=== PATIENT | female | born 1930 | race Caucasian/White ===

== ENCOUNTER 2021-03-05 15:38 | Inpatient (IN) | payer MEDICARE, SELFPAY ==
[~2021-03-05] VITALS: Ht 160 cm; Wt 49.2 kg
[2021-03-05 15:43] VITALS: BP_SYST 140
--- NOTE | 2021-03-05 15:57 | NUR ---
DR GOLDEN AT BEDSIDE FOR EXAM
--- NOTE | 2021-03-05 16:00 | NUR ---
PT SARAH FROM [facility] FOR SHORTNESS OF BREATH. PT AWAKE, ALERT, ORIENTED X4, REPORTS GENERALIZED WEAKNESS. DENIES ANY CHEST PAIN. PALE SKIN, WARM/DRY/INTACT. ON VIA NC AT 96%. Addendum: 03/05/21 at 1612 by SDTRAVPD ERROR-NOT ON VIA NC, SHE IS ON NRB @96%
--- NOTE | 2021-03-05 16:20 | NUR ---
EKG BEING DONE AT THIS TIME. Addendum: 03/05/21 at 1741 by SDTRAVPD UNABLE TO READ AN EKG, ASHA BENEDICT AND DR GOLDEN.
[2021-03-05 16:33] LABS: BASOPHILS % (AUTO) 0.4 % (0.0-2.0); EOSINOPHILS % (AUTO) 0.4 % (0.0-4.0); HEMATOCRIT 33.6 % (36-48); HEMOGLOBIN 11.3 g/dL (12.0-16.0); LYMPHOCYTES # (AUTO) 0.7 K/uL (1.0-5.5); LYMPHOCYTES % (AUTO) 8.1 % (20.5-51.5); MEAN CORPUSCULAR HEMOGLOBIN 30 pg (27-31); MEAN CORPUSCULAR HGB CONC 34 % (32-36); MEAN CORPUSCULAR VOLUME 90 fL (79.0-98.0); MONOCYTES # (AUTO) 0.8 K/uL (0.0-1.0); MONOCYTES % (AUTO) 8.8 % (1.7-9.3); NEUTROPHILS # (AUTO) 7.6 K/uL (1.8-7.7); NEUTROPHILS % (AUTO) 82.3 % (40.0-70.0); PLATELET COUNT (AUTO) 391 K/uL (130-430); RED BLOOD CELL COUNT(AUTO) 3.74 MIL/uL (4.2-6.2); RED CELL DISTRIBUTION WIDTH 17.1 % (9.0-15.0); WHITE BLOOD COUNT (AUTO) 9.2 K/uL (4.8-10.8)
[2021-03-05 16:35] LABS: ANION GAP 3 (5-15); CALCIUM 9.2 mg/dL (8.4-11.0); CHLORIDE 97 mmol/L (98-107); CREATININE 0.73 mg/dL (0.55-1.30); GLUCOSE 126 mg/dL (70-99); POTASSIUM 3.6 mmol/L (3.5-5.1); SODIUM SERUM 133 mmol/L (136-145); UREA NITROGEN, BLOOD 13 mg/dL (8-21)
[2021-03-05 16:41] LABS: ALANINE AMINOTRANSFERASE 20 U/L (12-78); ALBUMIN 2.9 g/dL (3.4-4.8); ASPARTATE AMINOTRANSFERASE 23 U/L (10-37); TOTAL BILIRUBIN 0.2 mg/dL (0.0-1.0)
--- NOTE | 2021-03-05 17:22 | NUR ---
Made several attempts for EKG w. 3 different machines. Machine is unable to read pt's rhythm.
[2021-03-05] MEDS ORDERED: cefTRIAXone 1 GM VIAL IM ONE (17:30)
[2021-03-05] MEDS ORDERED: AZITHROMYCIN 250 MG TABLET PO ONE (17:30)
--- NOTE | 2021-03-05 17:41 | NUR ---
MEDICATED ORDERED, WILL MONITOR FOR ANY ADVERSE SIDE EFFECTS.
--- NOTE | 2021-03-05 18:19 | NUR ---
Cleared 500 ml from rosa elena @18:20. Clear yellow & non-sedentary.
[2021-03-05] MEDS ORDERED: FUROSEMIDE 20 MG/2 ML VIAL IVP ONE (18:45)
--- NOTE | 2021-03-05 19:12 | NUR ---
Assumed total care of patient. Patient is AAO x4, GCS 15, c/o shortness of breath starting earlier today. 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 Patient denies chest pain, nausea, vomiting, fever, chills, or pain. Patient IV site patent with no signs of infiltration or infection. Indwelling cuba catheter draining clear yellow urine, bag below bladder. Will continue to monitor.
--- NOTE | 2021-03-05 19:59 | NUR ---
Update given to patients Leif david with permission from patient.
[2021-03-05 20:03] LABS: BILIRUBIN,URINE NEGATIVE (NEGATIVE); GLUCOSE,URINE NEGATIVE (NEGATIVE); KETONES,URINE NEGATIVE (NEGATIVE); LEUKOCYTE ESTERASE ,URINE 1+ (NEGATIVE); NITRITE, URINE POSITIVE (NEGATIVE); PH,URINE 5.5 (5.0-8.0); PROTEIN URINE NEGATIVE (NEGATIVE); UROBILINOGEN,URINE 0.2 (0.2-1.0)
[2021-03-05 20:06] LABS: BLOOD, URINE TRACE (NEGATIVE); CLARITY/URINE HAZY (CLEAR); COLOR,URINE STRAW (YELLOW)
[2021-03-05 20:31] LABS: BACTERIA,URINE MODERATE /HPF (None Seen); MUCUS,URINE 2+ /LPF (None Seen); RBC,URINE 0-3 /HPF (0-3); WBC,URINE 20-50 /HPF (0-3)
--- NOTE | 2021-03-05 21:28 | NUR ---
Patient resting quietly. No acute distress noted. Vital signs within normal range.
[2021-03-05] MEDS ORDERED: CEFEPIME 2 GM in D5W 100 ML IV ONE (22:00)
--- NOTE | 2021-03-05 22:28 | NUR ---
Lab at bedside drawing blood cultures
--- NOTE | 2021-03-05 23:52 | NUR ---
Patient will be admitted to care of Dr. Nina. Admitted to Telemetry unit. Will go to room pending. Complete and up to date summary report printed. SBAR report to be given at bedside with opportunity for questions.
[2021-03-05] MEDS ORDERED: CEFEPIME 2 GM/VIAL (MAXIPIME) ONE (23:59)
--- NOTE | 2021-03-06 00:19 | NUR ---
Blood cultures drawn, prior to administration of antibiotic.
--- NOTE | 2021-03-06 00:28 | NUR ---
Called patients son, Leif, and left voicemail to update him on plan of care.
[2021-03-06] MEDS ORDERED: ALBU2.5V7 INH (00:47)
[2021-03-06] MEDS ORDERED: LACT1POW8 PO (00:47)
[2021-03-06] MEDS ORDERED: WARF-66 PO (00:47)
[2021-03-06] MEDS ORDERED: METO-442 PO (00:47)
[2021-03-06] MEDS ORDERED: FURO40TA5 PO (00:47)
[2021-03-06] MEDS ORDERED: ACET325T PO (00:47)
--- NOTE | 2021-03-06 00:48 | NUR ---
Medication reconciliation completed with information provided by facility paperwork. Any prior medication reconciliation on file was reviewed and corrected.
--- NOTE | 2021-03-06 00:49 | NUR ---
Patient's code status is DNR paperwork completed and placed in chart.
--- NOTE | 2021-03-06 01:19 | NUR ---
Antiobiotics infusing via IVPB completed. IV site patent, no signs of infiltration or infection noted.
--- NOTE | 2021-03-06 02:12 | NUR ---
Patient is going to room 124A
--- NOTE | 2021-03-06 02:37 | NUR ---
Transfer to TELE via ACLS protocol. Licensed nurse present. IV present no signs or symptoms of infiltration.
--- NOTE | 2021-03-06 03:00 | NUR ---
CONSULTATION PAGED/CALLED Reason for Consultation: ASPIRATION PNA Person Who was Notified:ALEXANDER Consulting Physician: MALIK Psychology Fellow Specialty: Ordering Physician: MITCHELL
[2021-03-06 03:08] VITALS: BP_SYST 140
--- NOTE | 2021-03-06 03:40 | NUR ---
ADMISSION NOTE Received patient from ER via gurney. Patient admitted with diagnosis of aspiration pneumonia. Patient is awake, alert, oriented X 4. Patient oriented to hospital room, call light, toileting, pain management and safety-teach back done. Patient informed their room number is 124B. Personal belongings checked and Belongings List documented. Call light within reach.
--- NOTE | 2021-03-06 07:02 | NUR ---
Closing note Pt is resting in bed, no s/s of respiratory distress. Breathing even and unlabored. IV site is intact and patent. Varghese catheter is draining by gravity. Fall and safety precautions in place with bed in lowest position, bed alarm on, and call light within reach
--- NOTE | 2021-03-06 08:09 | NUR ---
CONSULTATION PAGED REASON FOR CONSULTATION:PNEUMONIA, UTI WAS CONSULT CALLED?Y PERSON WHO WAS NOTIFIED:EVELYNE CONSULTING PHYSICIAN:LASHANDA TEMPLE PATIENT CARE TECHNICIAN SPECIALTY:INFECTIOUS DISEASE PATIENT CARE TECHNICIAN PHONE NUMBER:[phone] REQUESTING PHYSICIAN:DR.[facility]
[2021-03-06] MEDS ORDERED: LORazepam 2 MG/ML VIAL IVP PRN (08:15)
[2021-03-06] MEDS ORDERED: MUPIROCIN 2% TOPICAL OINTMENT 22 GM NS PRN (08:15)
[2021-03-06] MEDS ORDERED: DOCUSATE SODIUM 100 MG CAPSULE PO PRN (08:15)
[2021-03-06] MEDS ORDERED: ALBUTEROL SULFATE 0.083% 2.5 MG/3 ML VIAL.NEB INH PRN (08:15)
[2021-03-06] MEDS ORDERED: MAGNESIUM SULFATE 50 ML IV PRN (08:15)
[2021-03-06] MEDS ORDERED: ACETAMINOPHEN 325 MG TABLET PO PRN (08:15)
[2021-03-06] MEDS ORDERED: POTASSIUM CHLORIDE 20 MEQ TAB.PRT.SR PO PRN (08:15)
[2021-03-06] MEDS ORDERED: ZOLPIDEM TARTRATE 5 MG TABLET PO PRN (08:15)
[2021-03-06] MEDS ORDERED: ONDANSETRON HCL 4 MG/2 ML VIAL IVP PRN (08:15)
[2021-03-06 08:36] LABS: BASOPHILS % (AUTO) 0.6 % (0.0-2.0); EOSINOPHILS % (AUTO) 0.6 % (0.0-4.0); HEMATOCRIT 30.7 % (36-48); HEMOGLOBIN 10.2 g/dL (12.0-16.0); LYMPHOCYTES % (AUTO) 11.4 % (20.5-51.5); MEAN CORPUSCULAR HEMOGLOBIN 30 pg (27-31); MEAN CORPUSCULAR HGB CONC 33 % (32-36); MEAN CORPUSCULAR VOLUME 90 fL (79.0-98.0); MONOCYTES # (AUTO) 0.9 K/uL (0.0-1.0); NEUTROPHILS # (AUTO) 6.8 K/uL (1.8-7.7); NEUTROPHILS % (AUTO) 77.4 % (40.0-70.0); PLATELET COUNT (AUTO) 351 K/uL (130-430); RED BLOOD CELL COUNT(AUTO) 3.42 MIL/uL (4.2-6.2); RED CELL DISTRIBUTION WIDTH 16.5 % (9.0-15.0); WHITE BLOOD COUNT (AUTO) 8.8 K/uL (4.8-10.8)
[2021-03-06] MEDS ORDERED: PIPERACILLIN/TAZO 3.375 GM in NS 50 ML IV ONE (09:00)
[2021-03-06] MEDS ORDERED: FUROSEMIDE 20 MG/2 ML VIAL IVP ONE (09:00)
[2021-03-06] MEDS ORDERED: METOPROLOL TARTRATE 50 MG TABLET PO ONE (09:00)
[2021-03-06 09:05] LABS: INR 1.6 (0.8-1.2); PROTHROMBIN TIME 16.4 SECS (9.5-12.5)
[2021-03-06] MEDS ORDERED: CYCL10TA24 PO (10:17)
[2021-03-06] MEDS ORDERED: THYR15TA9 PO (10:17)
[2021-03-06] MEDS ORDERED: DILT240C54 PO (10:17)
[2021-03-06] MEDS ORDERED: POLY17PO4 PO (10:17)
[2021-03-06] MEDS: cefTRIAXone 1 GM in D5W 50 ML IV SCH (10:22)
--- NOTE | 2021-03-06 10:25 | NUR ---
Nutrition Update : Reynold Scale: 17 noted Pt admitted for Aspiration Pneumonia. Diet: Cardiac BMI: 20.4 kg/m2 RD to follow per nutrition care standards.
[2021-03-06 12:00] VITALS: BP_SYST 130
--- NOTE | 2021-03-06 15:00 | NUR ---
removed the leads, and refuse to put it back.
[2021-03-06 16:22] VITALS: BP_SYST 140
--- NOTE | 2021-03-06 17:07 | NUR ---
received report from endorsing film processing shift supervisor RN for continuity of care, patient lying on bed, no signs of acute distress noted at this time, Varghese catheter in place, yellow urine in color, bed locked at lowest position, fall and safety precaution in place. will continue to monitor. Addendum: 03/06/21 at 1709 by Rama Galindo RN 07
--- NOTE | 2021-03-06 17:09 | NUR ---
drain Varghese catheter 1,100 cc, yellow urine in color.
[2021-03-06] MEDS: WARFARIN SODIUM 2 MG TABLET PO SCH ×2 (18:00→18:09)
--- NOTE | 2021-03-06 18:09 | NUR ---
patient refused to take Coumadin 2 mg
[2021-03-06 19:00] VITALS: BP_SYST 135
--- NOTE | 2021-03-06 19:15 | NUR ---
change of shift.pt.presents isolation status;droplet;covid19:pui status.pt.presents withdrawn affect status.pt.presents iv access location:rt.antecubital;ns flush infusing.pt.presents cuba cath intact.pt.presents the administration o2 therapy via nasal cannulae call light/telephone w/in access of the pt.
--- NOTE | 2021-03-06 19:19 | NUR ---
endorsed patient to stripper preliminary MAYRA Brito for continuity of care.
[2021-03-06 20:00] VITALS: BP_SYST 135
--- NOTE | 2021-03-06 20:00 | NUR ---
pt.assessed.v/s assessed values wnl.iv access intact iv fluids infusing.per flacc pain mgc pt.absent facial grimaces/body posturing.pt.assessed for cleanliness.pt.repositioned.o2-sat%=96%.call light/telephone placed w/in access of the pt.
--- NOTE | 2021-03-06 21:00 | NUR ---
2100pmedications administered.medications required crushed mixture apple sauze.pt.presents swallow capacity;function compromised.call light/telephone placed w/in access of the pt.
[2021-03-06] MEDS: DOXYCYCLINE HYCLATE 100 MG CAPSULE PO SCH (21:25)
[2021-03-06] MEDS: METOPROLOL TARTRATE 50 MG TABLET PO SCH (21:26)
[2021-03-06] MEDS: FUROSEMIDE 20 MG/2 ML VIAL IVP SCH (21:27)
--- NOTE | 2021-03-06 22:00 | NUR ---
pt.assessed.pt.presents quiescent affect;calm,somnolent.iv access intact iv fluids infusing.cuba cath intact urine content present.pt.assessed for cleanliness.pt.repositioned.per flacc pain mgx pt.absent facial grimaces/body posturing.call light/ telephone placed w/in access of the pt. Addendum: 03/07/21 at 0006 by Daryl Puente RN 02-sat%=96%.
[2021-03-07] VITALS (8 sets, daily range): BP systolic 123–155
--- NOTE | 2021-03-07 | NUR ---
pt.assessed.v/s assessed wnl.no c/o pain,nausea.iv access intact iv fluids infusing.cuba cath intact urine content present. 02-sat%=96%. pt.assessed for cleanliness.pt.repositioned.no requests posited@this hour.call light/telephone placed w/in access of the pt.
--- NOTE | 2021-03-07 02:00 | NUR ---
pt.assessed.pt.presents quiescent affect;calm,somnolent.per flacc pain mgx pt.absent facial grimaces/body posturing. pt.assessed for cleanliness.pt.repositioned.cuba cath intact urine content present.iv access intact iv fluids infusing.o2- sat%=96%.call light/telephone placed w/in access of the pt.
--- NOTE | 2021-03-07 04:00 | NUR ---
pt.assessed.pt.presents quiescent affect;calm,somnolent.per flacc pain mgx pt.absent facial grimaces/body posturing. cuba cath intact urine content present.o2-sat%=96%.pt.assessed for cleanliness.pt.repositioned.call light/telephone placed w/in access of the pt.
--- NOTE | 2021-03-07 06:36 | NUR ---
pt.assessed.pt.presents no c/o pain,nausea.pt.assessed for cleanliness.pt.repositioned.i have re-established iv access location lt.hand;#24g.call light/telephon placed w/in access of the pt.02-sat%=96%. Addendum: 03/07/21 at 0644 by Daryl Puente RN pt.weighed 2/t lasix administration.
[2021-03-07 07:02] LABS: BASOPHILS # (AUTO) 0.1 K/uL (0.0-0.2); BASOPHILS % (AUTO) 0.8 % (0.0-2.0); EOSINOPHILS % (AUTO) 0.2 % (0.0-4.0); HEMATOCRIT 33.6 % (36-48); LYMPHOCYTES # (AUTO) 0.9 K/uL (1.0-5.5); LYMPHOCYTES % (AUTO) 9.6 % (20.5-51.5); MEAN CORPUSCULAR HEMOGLOBIN 29 pg (27-31); MEAN CORPUSCULAR HGB CONC 33 % (32-36); MEAN CORPUSCULAR VOLUME 90 fL (79.0-98.0); MONOCYTES # (AUTO) 1.1 K/uL (0.0-1.0); MONOCYTES % (AUTO) 11.8 % (1.7-9.3); NEUTROPHILS # (AUTO) 6.9 K/uL (1.8-7.7); NEUTROPHILS % (AUTO) 77.6 % (40.0-70.0); PLATELET COUNT (AUTO) 389 K/uL (130-430); RED BLOOD CELL COUNT(AUTO) 3.74 MIL/uL (4.2-6.2); RED CELL DISTRIBUTION WIDTH 16.5 % (9.0-15.0); WHITE BLOOD COUNT (AUTO) 8.9 K/uL (4.8-10.8)
[2021-03-07 07:12] LABS: INR 1.4 (0.8-1.2); PROTHROMBIN TIME 14.4 SECS (9.5-12.5)
[2021-03-07 07:25] LABS: CALCIUM 8.6 mg/dL (8.4-11.0); CHLORIDE 97 mmol/L (98-107); CREATININE 0.46 mg/dL (0.55-1.30); GLUCOSE 110 mg/dL (70-99); SODIUM SERUM 138 mmol/L (136-145); UREA NITROGEN, BLOOD 10 mg/dL (8-21)
--- NOTE | 2021-03-07 07:35 | NUR ---
OPENING NOTES: RECEIVED REPORT FROM [facility] [place] SHIFT NURSE. PATIENT IS AWAKE SITTING IN BED. TOLERATED OXYGEN ON 4L VIA NASAL CANNULA WITH NO DISTRESS NOTED. IV LINE PATENT AND INTACT WITH NO INFILTRATION NOTED. PATIENT STABLE AT THIS TIME. SAFETY, FALL, ISOLATION, AND ASPIRATION PRECAUTIONS ARE IN PLACE. BED LOCKED IN LOWEST POSITION AND CALL LIGHT IN REACH. WILL CONTINUE TO MONITOR PATIENT FOR ANY CHANGES.
[2021-03-07 07:42] LABS: ANION GAP 10 (5-15)
[2021-03-07 08:19] LABS: POTASSIUM 2.7 mmol/L (3.5-5.1)
--- NOTE | 2021-03-07 08:40 | NUR ---
ATTENDING MD DR MEDRANO WAS CALLED, RE: CRITICAL K LEVEL.
[2021-03-07] MEDS: cefTRIAXone 1 GM in D5W 50 ML IV SCH (09:11)
[2021-03-07] MEDS: DOXYCYCLINE HYCLATE 100 MG CAPSULE PO SCH ×2 (09:11→20:50)
[2021-03-07] MEDS: METOPROLOL TARTRATE 50 MG TABLET PO SCH ×2 (09:12→20:50)
[2021-03-07] MEDS: FUROSEMIDE 20 MG/2 ML VIAL IVP SCH ×2 (09:25→20:49)
[2021-03-07] MEDS ORDERED: POTASSIUM CHLORIDE 20 MEQ/PKT PACKET PO ONE (10:45)
--- NOTE | 2021-03-07 18:20 | NUR ---
CLOSING NOTES: PATIENT IS AWAKE SITTING IN BED. TOLERATED OXYGEN ON 4L VIA NASAL CANNULA WITH NO DISTRESS NOTED. IV LINE PATENT AND INTACT WITH NO INFILTRATION NOTED. PATIENT STABLE AT THIS TIME. SAFETY, FALL, ISOLATION, AND ASPIRATION PRECAUTIONS REMAINED IN PLACE. BED LOCKED IN LOWEST POSITION AND CALL LIGHT IN REACH. WILL ENDORSE PATIENT CARE TO ONCOMING PATHOLOGY TECHNICIAN NURSE.
[2021-03-07] MEDS: WARFARIN SODIUM 2 MG TABLET PO SCH (18:22)
--- NOTE | 2021-03-07 19:15 | NUR ---
change of shift.pt.presents isolation status;droplet;covid19 pui status.pt.presents quiescent affect calm,resting.pt.presents iv access location;lt.hand iv lock.pt.presents cuba cath intact urine content present.pt.receiving the administration o2 therapy via nasal cannulae.rate;4l/min.02-sat%=95%.call light/telephone w/in access of the pt.
--- NOTE | 2021-03-07 20:00 | NUR ---
pt.assessed.v/s assessed values wnl.no c/o pain,nausea.iv access iv lock.i have apprised the pt.that snacks/beverages are available w/in the shift.no requests posited@this hour.pt.assessed for cleanliness.pt.repositioned.o2-sat%=95%. cuba cath intact urine content present.call light/telephone placed w/in access of the pt.
[2021-03-07] MEDS: POTASSIUM CHLORIDE 20 MEQ/PKT PACKET PO SCH (20:53)
--- NOTE | 2021-03-07 21:00 | NUR ---
2100pmedications administered.medications crushed mixture apple sauce.pt.capable to ingest the po medications slight difficulty. note swallow capacity;function.no c/o pain,nausea.call light/telephone placed w/in access of the pt.
--- NOTE | 2021-03-07 22:00 | NUR ---
pt.assessed.pt.presents quiescent affect;calm,resting.no c/o pain,nausea.no requests posited@this hour.iv access intact. iv lock.cuba cath intact urine content present.pt.assessed for cleanliness.pt.repositioned.o2-sat%=94%.call light/telephone placed w/in access of the pt.
[2021-03-08] VITALS (7 sets, daily range): BP systolic 141–156
--- NOTE | 2021-03-08 | NUR ---
pt.assessed.v/s assessed values wnl.no c/o pain,nausea.iv access intact iv lock.cuba cath intact urine content present.pt.assessed for cleanliness.pt.repositioned.02-thu%=95%.call light/telephone placed w/in access of the pt.
--- NOTE | 2021-03-08 02:00 | NUR ---
pt.assessed.pt.presents quiescent affect;calm,somnolent.per flacc pain mgx pt.absent facial grimaces/body posturing. o2-sat%=94%.cuba cath intact urine content present.pt.assessed for cleanliness.pt.repositioned.call light/telephone placed w/in access of the pt.
--- NOTE | 2021-03-08 04:00 | NUR ---
pt.assessed.pt.presents quiescent affect;calm,somnolent.per flacc pain mgx pt.absent facial grimaces/body posturing. pt.assessed for cleanliness.pt.repositioned.02-thu%=94%.call light/telephone placed w/in access of the pt. Addendum: 03/08/21 at 0414 by Daryl Puente RN rosa elena chacon intact urine content present.
--- NOTE | 2021-03-08 06:04 | NUR ---
pt.assessed.pt.presents quiescent affect;calm,somnolent.per flacc pain mgx pt.absent facial grimaces/body posturing.02-sat% =94%pt.weighed:2/t chf/lasix administration.pt.assessed for cleanliness.pt.repsitioned.call light/telephone placed w/in access of the pt.
[2021-03-08 07:25] LABS: EOSINOPHILS % (AUTO) 0.6 % (0.0-4.0); HEMATOCRIT 33.2 % (36-48); HEMOGLOBIN 10.9 g/dL (12.0-16.0); LYMPHOCYTES % (AUTO) 12.6 % (20.5-51.5); MEAN CORPUSCULAR HEMOGLOBIN 29 pg (27-31); MEAN CORPUSCULAR HGB CONC 33 % (32-36); MEAN CORPUSCULAR VOLUME 89 fL (79.0-98.0); MONOCYTES % (AUTO) 12.7 % (1.7-9.3); PLATELET COUNT (AUTO) 342 K/uL (130-430); RED BLOOD CELL COUNT(AUTO) 3.72 MIL/uL (4.2-6.2); RED CELL DISTRIBUTION WIDTH 16.5 % (9.0-15.0); WHITE BLOOD COUNT (AUTO) 7.6 K/uL (4.8-10.8)
--- NOTE | 2021-03-08 07:35 | NUR ---
OPENING NOTES: RECEIVED REPORT FROM [facility] SHIFT NURSE. PATIENT IS AWAKE SITTING IN BED. TOLERATED OXYGEN ON 4L VIA NASAL CANNULA WITH NO DISTRESS NOTED. IV LINE PATENT AND INTACT WITH NO INFILTRATION NOTED. PATIENT STABLE AT THIS TIME. SAFETY, FALL, ISOLATION, AND ASPIRATION PRECAUTIONS ARE IN PLACE. BED LOCKED IN LOWEST POSITION AND CALL LIGHT IN REACH. WILL CONTINUE TO MONITOR PATIENT FOR ANY CHANGES.
[2021-03-08 07:45] LABS: INR 1.5 (0.8-1.2); PROTHROMBIN TIME 15.7 SECS (9.5-12.5)
[2021-03-08 08:02] LABS: ALANINE AMINOTRANSFERASE 17 U/L (12-78); ALBUMIN 2.5 g/dL (3.4-4.8); ANION GAP 4 (5-15); ASPARTATE AMINOTRANSFERASE 19 U/L (10-37); CALCIUM 8.6 mg/dL (8.4-11.0); CHLORIDE 99 mmol/L (98-107); CREATININE 0.59 mg/dL (0.55-1.30); GLUCOSE 117 mg/dL (70-99); POTASSIUM 3.7 mmol/L (3.5-5.1); SODIUM SERUM 138 mmol/L (136-145); TOTAL BILIRUBIN 0.4 mg/dL (0.0-1.0); UREA NITROGEN, BLOOD 13 mg/dL (8-21)
[2021-03-08 08:25] LABS: BASOPHILS % (AUTO) 0.1 % (0.0-2.0); NEUTROPHILS # (AUTO) 5.7 K/uL (1.8-7.7)
[2021-03-08] MEDS: POTASSIUM CHLORIDE 20 MEQ/PKT PACKET PO SCH (08:45)
[2021-03-08] MEDS: DOXYCYCLINE HYCLATE 100 MG CAPSULE PO SCH (08:45)
[2021-03-08] MEDS: METOPROLOL TARTRATE 50 MG TABLET PO SCH (08:45)
[2021-03-08] MEDS: FUROSEMIDE 20 MG/2 ML VIAL IVP SCH (08:46)
[2021-03-08] MEDS ORDERED: SPIRONOLACTONE 25 MG TABLET (ALDACTONE) PO ONE (09:00)
[2021-03-08] MEDS: cefTRIAXone 1 GM in D5W 50 ML IV SCH (09:01)
--- NOTE | 2021-03-08 12:45 | NUR ---
CALLED [facility] AND SPOKE TO SHAILESH AND GAVE REPORT. KATE (SON) IS AWARE ABOUT THE TRANSFER. Addendum: 03/08/21 at 1617 by Jaime Jimenez RN CALLED [facility] SPOKE TO LUCA AND GAVE REPORT. KATE (SON) IS AWARE ABOUT THE TRANSFER. PATIENT WILL BE IN ROOM 23B.
--- NOTE | 2021-03-08 15:25 | NUR ---
Patient to transfer to [facility] 23b Number for report [phone]-[place] to transport at 4 PM today
--- NOTE | 2021-03-08 17:15 | NUR ---
D/C Patient Patient given medication reconciliation form and D/C instructions. Exit Care provided. Patient verbalized understanding. MD discussed with patient the results and treatment provided. Non-Ambulatory for dishcarge to [facility]. Patient in stable condition, ID band removed. IV catheter removed, intact and dressing applied, no active bleeding. Patient educated on pain management. All belongings sent with patient.
[2021-03-08] MEDS ORDERED: SPIRONOLACTONE 25 MG TABLET (ALDACTONE) PO SCH (21:00)
== END 2021-03-08 17:20 | DRG 177 ==
LOC: SED 15:38 → STU 23:45
PROVIDERS: ADMIT General Practice; ATTEND General Practice
DX: J69.0 Pneumonitis due to inhalation of food and vomit (principal); I50.43 Acute on chronic combined systolic (congestive) and diastolic (congestive) heart failure; E43 Unspecified severe protein-calorie malnutrition; J96.91 Respiratory failure, unspecified with hypoxia; E87.1 Hypo-osmolality and hyponatremia; N39.0 Urinary tract infection, site not specified; I48.20 Chronic atrial fibrillation, unspecified; Z68.1 Body mass index [BMI] 19.9 or less, adult; J44.0 Chronic obstructive pulmonary disease with (acute) lower respiratory infection; I11.0 Hypertensive heart disease with heart failure; Z66 Do not resuscitate; K56.41 Fecal impaction; Z20.822 Contact with and (suspected) exposure to COVID-19; Z79.01 Long term (current) use of anticoagulants; Z88.0 Allergy status to penicillin; Z88.8 Allergy status to other drugs, medicaments and biological substances; Z79.899 Other long term (current) drug therapy; Z95.0 Presence of cardiac pacemaker; Z87.81 Personal history of (healed) traumatic fracture
CPT/HCPCS: 36415; 71045; 80048; 80053; 81000; 82550; 83036; 83735; 83880; 84484; 85025; 85610-TC; 86738; 87040-TC; 87081; 87086; 93005; 93306; 94760; 96365; 96372; 96375; 99285; G0378; J0692; J0696; J1940; J7060; Q0144; U0003

== ENCOUNTER 2021-03-29 15:36 | Emergency (ER) | payer MEDICARE, SELFPAY ==
[~2021-03-29] VITALS: Ht 162.6 cm; Wt 49.9 kg
[2021-03-29 15:36] VITALS: BP_SYST 154
[~2021-03-29 15:36] MED LIST: ACET325T PO; ALBU2.5V7 INH; CYCL10TA24 PO; DILT240C54 PO; FURO40TA5 PO; LACT1POW8 PO; METO-442 PO; POLY17PO4 PO; THYR15TA9 PO; WARF-66 PO
--- NOTE | 2021-03-29 15:59 | NUR ---
Placed in room 01 . Placed on monitoring manager, blood pressure machine and pulse oximeter. To gown for exam. Side rails up.
--- NOTE | 2021-03-29 16:00 | NUR ---
Pt brought by JADA from doctor's office, per report pt had one episode of facial drop and stutter speech today, pt arrived in a baseline condition, no facil drop or slurred speech noted, cap refill <3, VSS, respirations even and unlabored, will cont to monitor.
--- NOTE | 2021-03-29 16:10 | NUR ---
Dr Barba evaluating patient at bedside
[2021-03-29 16:47] LABS: BASOPHILS % (AUTO) 0.5 % (0.0-2.0); EOSINOPHILS % (AUTO) 0.2 % (0.0-4.0); HEMATOCRIT 35.2 % (36-48); HEMOGLOBIN 11.5 g/dL (12.0-16.0); LYMPHOCYTES # (AUTO) 0.8 K/uL (1.0-5.5); LYMPHOCYTES % (AUTO) 9.3 % (20.5-51.5); MEAN CORPUSCULAR HEMOGLOBIN 29 pg (27-31); MEAN CORPUSCULAR HGB CONC 33 % (32-36); MEAN CORPUSCULAR VOLUME 90 fL (79.0-98.0); MONOCYTES # (AUTO) 0.8 K/uL (0.0-1.0); MONOCYTES % (AUTO) 9.3 % (1.7-9.3); NEUTROPHILS # (AUTO) 7.2 K/uL (1.8-7.7); NEUTROPHILS % (AUTO) 80.7 % (40.0-70.0); PLATELET COUNT (AUTO) 273 K/uL (130-430); RED BLOOD CELL COUNT(AUTO) 3.93 MIL/uL (4.2-6.2); RED CELL DISTRIBUTION WIDTH 16.6 % (9.0-15.0); WHITE BLOOD COUNT (AUTO) 8.9 K/uL (4.8-10.8)
[2021-03-29 17:03] LABS: BILIRUBIN,URINE NEGATIVE (NEGATIVE); BLOOD, URINE 1+ (NEGATIVE); CLARITY/URINE CLEAR (CLEAR); COLOR,URINE YELLOW (YELLOW); GLUCOSE,URINE NEGATIVE (NEGATIVE); KETONES,URINE NEGATIVE (NEGATIVE); LEUKOCYTE ESTERASE ,URINE 1+ (NEGATIVE); NITRITE, URINE NEGATIVE (NEGATIVE); PH,URINE 5.5 (5.0-8.0); PROTEIN URINE NEGATIVE (NEGATIVE); UROBILINOGEN,URINE 0.2 (0.2-1.0)
--- NOTE | 2021-03-29 17:05 | NUR ---
urine sent to the lab
[2021-03-29 17:15] LABS: ANION GAP 12 (5-15); CALCIUM 9.8 mg/dL (8.4-11.0); CHLORIDE 98 mmol/L (98-107); CREATININE 0.98 mg/dL (0.55-1.30); GLUCOSE 127 mg/dL (70-99); POTASSIUM 4.6 mmol/L (3.5-5.1); SODIUM SERUM 136 mmol/L (136-145); UREA NITROGEN, BLOOD 32 mg/dL (8-21)
[2021-03-29 17:20] LABS: BACTERIA,URINE FEW /HPF (None Seen); MUCUS,URINE None Seen /LPF (None Seen); RBC,URINE NONE SEEN /HPF (0-3); YEAST,URINE Few /HPF (None Seen)
[2021-03-29 17:25] LABS: ALANINE AMINOTRANSFERASE 17 U/L (12-78); ALBUMIN 3.5 g/dL (3.4-4.8); ASPARTATE AMINOTRANSFERASE 23 U/L (10-37); TOTAL BILIRUBIN 0.3 mg/dL (0.0-1.0)
[2021-03-29] MEDS ORDERED: FLUCONAZOLE 200 MG TABLET (DIFLUCAN) PO ONE (19:00)
[2021-03-29] MEDS ORDERED: NITROFURANTOIN MONOHYD/M-CRYST 100 MG CAPSULE (MacroBID) PO ONE (19:00)
--- NOTE | 2021-03-29 19:00 | NUR ---
Pt A&Ox1, VSS , respirations even and unlabored
--- NOTE | 2021-03-29 20:39 | NUR ---
Pt VSS, respirations even and unlabored, cap refill <3
[2021-03-29] MEDS ORDERED: NITR-85 PO (21:01)
[2021-03-29] MEDS ORDERED: FLUC200T PO (21:14)
[2021-03-29 22:40] VITALS: BP_SYST 114
--- NOTE | 2021-03-29 22:46 | NUR ---
Patient given written and verbal discharge instructions and verbalizes understanding. ER MD discussed with patient the results and treatment provided. Patient in stable condition. ID arm band removed. IV catheter removed intact and dressing applied, no active bleeding. Rx of Macrbid and Nitrofurantoin given. Patient educated on pain management and to follow up with PMD. Pain Scale 0/10. Opportunity for questions provided and answered. Medication side effect fact sheet provided.
== END 2021-03-29 22:40 | disposition home or self-care (01) ==
LOC: SED 15:36
DX: B37.49 Other urogenital candidiasis (principal); I10 Essential (primary) hypertension; J44.9 Chronic obstructive pulmonary disease, unspecified; I48.91 Unspecified atrial fibrillation; Z88.0 Allergy status to penicillin; Z88.8 Allergy status to other drugs, medicaments and biological substances; Z79.899 Other long term (current) drug therapy; Z20.822 Contact with and (suspected) exposure to COVID-19
CPT/HCPCS: 36415; 70450-TC; 71045; 76376; 80053; 81000; 84484; 85025; 87086; 93005; 99285

== ENCOUNTER 2021-03-30 20:19 | Emergency (ER) | payer MEDICARE, SELFPAY ==
[~2021-03-30 20:19] MED LIST changes: +FLUC200T PO; +NITR-85 PO
[2021-03-30 20:32] VITALS: BP_SYST 164
[2021-03-30] MEDS ORDERED: cefTRIAXone 1 GM IVPB PREMIX 50 ML IV ONE (23:15)
[2021-03-30] MEDS ORDERED: NACL 0.9% 1,000 ML IV ONE (23:15)
[2021-03-30 23:41] LABS: BASOPHILS % (AUTO) 0.3 % (0.0-2.0); EOSINOPHILS % (AUTO) 0.5 % (0.0-4.0); HEMATOCRIT 34.2 % (36-48); HEMOGLOBIN 11.1 g/dL (12.0-16.0); LYMPHOCYTES # (AUTO) 0.7 K/uL (1.0-5.5); LYMPHOCYTES % (AUTO) 8.4 % (20.5-51.5); MEAN CORPUSCULAR HEMOGLOBIN 29 pg (27-31); MEAN CORPUSCULAR HGB CONC 32 % (32-36); MEAN CORPUSCULAR VOLUME 89 fL (79.0-98.0); MONOCYTES # (AUTO) 0.9 K/uL (0.0-1.0); MONOCYTES % (AUTO) 9.7 % (1.7-9.3); NEUTROPHILS # (AUTO) 7.2 K/uL (1.8-7.7); NEUTROPHILS % (AUTO) 81.1 % (40.0-70.0); PLATELET COUNT (AUTO) 262 K/uL (130-430); RED BLOOD CELL COUNT(AUTO) 3.85 MIL/uL (4.2-6.2); RED CELL DISTRIBUTION WIDTH 16.4 % (9.0-15.0); WHITE BLOOD COUNT (AUTO) 8.9 K/uL (4.8-10.8)
[2021-03-30 23:43] LABS: ANION GAP 7 (5-15); CALCIUM 9.9 mg/dL (8.4-11.0); CHLORIDE 101 mmol/L (98-107); CREATININE 0.89 mg/dL (0.55-1.30); GLUCOSE 109 mg/dL (70-99); POTASSIUM 4.5 mmol/L (3.5-5.1); SODIUM SERUM 138 mmol/L (136-145); UREA NITROGEN, BLOOD 28 mg/dL (8-21)
[2021-03-30 23:51] LABS: ALANINE AMINOTRANSFERASE 26 U/L (12-78); ALBUMIN 3.7 g/dL (3.4-4.8); ASPARTATE AMINOTRANSFERASE 22 U/L (10-37); TOTAL BILIRUBIN 0.3 mg/dL (0.0-1.0)
[2021-03-31 01:57] LABS: INR 2.8 (0.8-1.2); PROTHROMBIN TIME 28.1 SECS (9.5-12.5)
[2021-03-31] MEDS ORDERED: AZITHROMYCIN 500 MG in NS 250 ML IV ONE (05:15)
[2021-03-31] MEDS ORDERED: AZITHROMYCIN 500 MG/VIAL (ZITHROMAX) IV ONE (05:44)
[2021-03-31 09:21] VITALS: BP_SYST 143
== END 2021-03-31 09:21 ==
LOC: SED 20:19
DX: Z04.3 Encounter for examination and observation following other accident (principal); R62.7 Adult failure to thrive; I10 Essential (primary) hypertension; J44.9 Chronic obstructive pulmonary disease, unspecified; Z88.0 Allergy status to penicillin; Z88.8 Allergy status to other drugs, medicaments and biological substances; Z79.899 Other long term (current) drug therapy; Z20.822 Contact with and (suspected) exposure to COVID-19; W18.39XA Other fall on same level, initial encounter; Y93.89 Activity, other specified; Y92.89 Other specified places as the place of occurrence of the external cause; Y99.8 Other external cause status
CPT/HCPCS: 36415; 70450; 71250; 72192; 76376; 80053; 82962; 83605; 84484; 85025; 85610; 87040; 87426; 93005; 96365; 96367; 99285; J0456; J0696